=== PATIENT | female | born 1960 | race Caucasian/White ===

== ENCOUNTER → 2017-12-16 09:27 | Outpatient (CLI) | payer MEDICAID, SELFPAY ==
[2017-12-16 10:49] LABS: C-Reactive Protein 1.07 mg/dL (0.0-0.3); Creatine Kinase 65 U/L (26-192)
[2017-12-16 11:08] LABS: ESR 11 MM/HR (0-30)
== END ==
PROVIDERS: PCP Family Medicine; Visit Provider Internal Medicine Rheumatology
DX: M79.1 Myalgia (principal)
CPT/HCPCS: 36415; 82550; 85652; 82085; 86140

== ENCOUNTER 2019-05-13 11:41 | Outpatient (CLI) | payer MEDICAID, SELFPAY ==
[2019-05-13 12:57] LABS: Vitamin D 25 Total 48.2 ng/ml (30-100)
== END 2019-05-13 12:01 ==
PROVIDERS: PCP Family Medicine; Visit Provider Physical Medicine & Rehabilitation
DX: M89.9 Disorder of bone, unspecified (principal); E55.9 Vitamin D deficiency, unspecified
CPT/HCPCS: 36415; 82306

== ENCOUNTER 2019-07-13 11:38 | Outpatient (CLI) | payer MEDICAID, SELFPAY ==
[2019-07-13 12:24] LABS: Abs Immature Grans 0.01 k/cumm (0.0-0.09); Absolute Basophil Count 0.06 k/cumm (0.0-0.2); Absolute Eosinophil Count 0.08 k/cumm (0.0-0.7); Absolute Lymphocyte Count 2.26 k/cumm (1.2-3.4); Absolute Neutrophil Count 3.24 k/cumm (1.2-6.7); Eosinophils % 1.3; HCT 40.3 % (36.0-46.0); HGB 13.1 g/dL (12.0-15.5); Immature Grans % 0.2 %; Lymphocytes % 37.4; Mean Corp. HGB Concentration 32.5 g/dL (32.0-36.0); Mean Corpuscular Hemoglobin 30.5 pg (27.0-33.0); Mean Corpuscular Volume 93.7 fL (80-95); Mean Platelet Volume 8.8 fL (8.0-11.0); Monocytes % 6.6; Neutrophils % 53.5; Platelet Count 314 x1000/uL (130-400); RBC Distribution Width 13.2 % (11.7-14.6); White Blood Cell Count 6.05 k/cumm (4.4-10.8)
[2019-07-13 12:56] LABS: Iron 47 ug/dL (50-170); Total Iron Binding Capacity 260 ug/dL (250-450); Transferrin Sat 18 % (15-50)
[2019-07-13 13:23] LABS: Ferritin 299 ng/mL (8-252); Folate 14.6 ng/mL (8.6-20.0); TSH 1.29 uIU/mL (0.36-3.74); Vitamin B12 239 pg/mL (193-986)
== END 2019-07-13 11:58 ==
PROVIDERS: PCP Family Medicine; Visit Provider Physical Medicine & Rehabilitation
DX: M79.10 Myalgia, unspecified site (principal); R53.83 Other fatigue; G47.9 Sleep disorder, unspecified; E03.9 Hypothyroidism, unspecified
CPT/HCPCS: 36415; 82607; 82728; 82746; 83540; 83550; 84443; 85025

== ENCOUNTER 2019-09-21 13:38 | Outpatient (REF) | payer MEDICAID, SELFPAY ==
[2019-09-22 13:29] LABS: COVID-19 RT-PCR UVMMC Result Negative (Negative)
== END 2019-09-21 13:58 ==
LOC: NCHCN 13:38
PROVIDERS: PCP Family Medicine; Visit Provider Physician Assistant
DX: R50.9 Fever, unspecified (principal)
CPT/HCPCS: U0003

== ENCOUNTER 2020-07-03 03:02 | Outpatient (CLI) | payer MEDICAID, SELFPAY | END 2020-07-03 03:03 | disposition home or self-care (01) | LOC: LBO 03:03 | PROVIDERS: PCP Family Medicine; Visit Provider Physical Medicine & Rehabilitation | DX: E55.9 Vitamin D deficiency, unspecified (principal); M89.8X8 Other specified disorders of bone, other site | CPT/HCPCS: 36415; 82306 ==

== ENCOUNTER 2021-05-22 15:01 | Outpatient (REF) | payer MEDICAID, SELFPAY ==
[2021-05-22 19:30] LABS: ALT 24 U/L (14-59); AST 15 U/L (15-37); Alkaline Phosphatase 68 U/L (46-116); Anion Gap 9.2 mmol/L (3-11); BUN 12 mg/dL (7-18); Bilirubin, Total 0.2 mg/dL (0.2-1.0); CO2 27.8 mmol/L (21.0-32.0); CREATININE 0.6 mg/dL (0.55-1.02); Calcium 9.3 mg/dL (8.5-10.1); Calculated LDL 124 mg/dL (<100); Chloride 104 mmol/L (98-107); Cholesterol 221 mg/dL (<200); Glucose 83 mg/dL (74-106); HDL Cholesterol 79 mg/dL (40-60); Potassium 4.3 mmol/L (3.5-5.1); Sodium 141 mmol/L (136-145); Total Protein 6.7 g/dL (6.4-8.2); Triglyceride 92 mg/dL (<150)
== END 2021-05-22 15:02 | disposition home or self-care (01) ==
LOC: NCHCN 15:01
PROVIDERS: PCP Family Medicine; Visit Provider Physician Assistant Medical
DX: Z00.8 Encounter for other general examination (principal); Z13.220 Encounter for screening for lipoid disorders
CPT/HCPCS: 80053; 80061

== ENCOUNTER 2021-07-17 16:18 | Outpatient (CLI) | payer MEDICAID, SELFPAY ==
--- NOTE | 2021-07-17 | DI.CT_ITS ---
Exam(s) CT HEAD WO EXAM: CT HEAD WO CLINICAL HISTORY: HX HEAD INJURY Z87.820, INCREASING HEADACHE AND MEMORY ISSUES. TECHNIQUE: Imaging Protocol: Axial computed tomography images with coronal and sagittal reformatted images were created and reviewed COMPARISON: No exams were available for comparison FINDINGS: There are no skull fractures nor fluid in the visualized paranasal sinuses. There is no evidence of intracranial hemorrhage, mass effect, or shift of midline structures. There are no extra-axial fluid collections. The ventricles are not enlarged or shifted and there is no blo od within the ventricular system nor within the basal cisterns. IMPRESSION: No acute intracranial findings on this noninfused CT scan of the brain. RADIATION DOSE DELIVERED: 678.04mGy.cm Total DLP DATA REPOSITORY: All CT scans at this facility are submitted to the National Radiology Data Registry (NRDR) Dose Index Registry (DIR) with the [employer] ([employer]). RADIATION OPTIMIZATION: All CT scans at this facility use at least one of these dose optimization te chniques: automated exposure control; mA and/or kV adjustment per patient size (includes targeted exa ms where dose is matched to clinical indication); or iterative reconstruction.
== END 2021-07-17 16:38 ==
PROVIDERS: PCP Family Medicine; Visit Provider Nurse Practitioner Family
DX: R51.9 Headache, unspecified (principal); R41.3 Other amnesia; Z87.820 Personal history of traumatic brain injury
CPT/HCPCS: 70450

== ENCOUNTER 2021-08-01 00:31 | Outpatient (CLI) | payer MEDICAID, SELFPAY ==
--- NOTE | 2021-08-01 | DI.MRI_ITS ---
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 COMPARISON: CT CT HEAD WO from 07/17/2021 FINDINGS: CEREBRAL PARENCHYMA: There is no evidence of intracranial hemorrhage, mass effect, or shift of midline structures. There are no extra-axial fluid collections. Ventricles are not enlarged or shifted. There is no significant focal signal abnormality in the cerebellar hemispheres nor within the hardy, m idbrain, and thalami. There is no abnormal signal abnormality in the periventricular white matter. There is no significant focal signal abnormality evident on diffusion imaging to suggest acute ischem ic event. No evidence of microhemorrhages on susceptibility weighted imaging Amount of involutional change appears consistent with this patient's age. PITUITARY GLAND: No mass nor parasellar abnormality. No obvious abnormality in the cavernous sinuses. FLOW VOIDS: The expected flow void are noted. No evidence of obvious aneurysm nor obvious vascular ma lformation. PARANASAL SINUSES: The visualized paranasal sinuses appear unremarkable. No obvious finding ORBITS: No obvious findings. IMPRESSION: No significant intracranial findings on this noninfused MRI scan of the brain. DATA REPOSITORY:
== END 2021-08-01 00:51 ==
PROVIDERS: PCP Family Medicine; Visit Provider Nurse Practitioner Family
DX: G31.84 Mild cognitive impairment of uncertain or unknown etiology (principal); Z87.820 Personal history of traumatic brain injury
CPT/HCPCS: 70551

== ENCOUNTER 2021-11-13 18:18 | Outpatient (REF) | payer MEDICAID, SELFPAY | END 2021-11-13 18:19 | disposition home or self-care (01) | LOC: LBN 18:18 | PROVIDERS: PCP Family Medicine; Visit Provider Nurse Practitioner Family | DX: L08.89 Other specified local infections of the skin and subcutaneous tissue (principal) | CPT/HCPCS: 87077; 87070; 87186; 87205 ==

== ENCOUNTER 2023-01-22 18:40 | Outpatient (REF) | payer MEDICAID, SELFPAY ==
[2023-01-22 20:55] LABS: Abs Immature Grans 0.03 10^3/uL (0.0-0.06); Absolute Eosinophil Count 0.08 10^3/uL (0.0-0.7); Absolute Lymphocyte Count 2.33 10^3/uL (1.2-3.4); Absolute Monocyte Count 0.53 10^3/uL (0.1-0.8); Absolute Neutrophil Count 3.78 10^3/uL (1.2-6.7); Basophils % 1.5; Eosinophils % 1.2; HCT 41.1 % (36.0-46.0); HGB 13.7 g/dL (11.2-15.7); Immature Grans % 0.4; MCH 32.3 pg (27.0-33.0); MCHC 33.3 % (32.0-36.0); MCV 97 fL (80-95); MPV 9.5 fL (8.0-11.0); Monocytes % 7.7; Neutrophils % 55.2; Platelet Count 299 10^3/uL (130-400); RBC 4.24 10^6/uL (3.93-5.22); RDW-SD 46.1 fL; WBC 6.85 10^3/uL (4.4-10.8)
[2023-01-22 21:22] LABS: ALT 22 U/L (14-59); AST 23 U/L (15-37); Albumin 3.9 g/dL (3.4-5.0); Alkaline Phosphatase 70 U/L (46-116); Anion Gap 6.7 mmol/L (3-11); BUN 17 mg/dL (7-18); Bilirubin, Total 0.4 mg/dL (0.2-1.0); CO2 29.3 mmol/L (21.0-32.0); CREATININE 0.8 mg/dL (0.55-1.02); Calcium 9.3 mg/dL (8.5-10.1); Chloride 105 mmol/L (98-107); Estimated GFR 82.23 (mL/min/1.73m2); Glucose 90 mg/dL (74-106); Potassium 4.1 mmol/L (3.5-5.1); Sodium 141 mmol/L (136-145); Total Protein 7.1 g/dL (6.4-8.2)
== END 2023-01-22 18:41 | disposition home or self-care (01) ==
LOC: NCHCN 18:40
PROVIDERS: PCP Family Medicine; Visit Provider Physician Assistant Medical
DX: E03.9 Hypothyroidism, unspecified (principal); R53.83 Other fatigue; Z13.228 Encounter for screening for other metabolic disorders
CPT/HCPCS: 80053; 85025

== ENCOUNTER 2025-01-31 10:45 | Outpatient (CLI) | payer MEDICARE, BC, SELFPAY ==
[2025-01-31 10:32] LABS: HCT 41.1 % (36.0-46.0); HGB 13.6 g/dL (11.2-15.7); MCH 30.9 pg (27.0-33.0); MCHC 33.1 % (32.0-36.0); MCV 93 fL (80-95); MPV 8.2 fL (8.0-11.0); Platelet Count 313 10^3/uL (130-400); RBC 4.40 10^6/uL (3.93-5.22); RDW 12.8 % (11.7-14.6); RDW-SD 44.2 fL; WBC 8.77 10^3/uL (4.4-10.8)
[2025-01-31 11:28] LABS: ALT 25 U/L (14-59); AST 21 U/L (15-37); Albumin 4.0 g/dL (3.4-5.0); Alkaline Phosphatase 82 U/L (46-116); Anion Gap 8.0 mmol/L (3-11); BUN 15 mg/dL (7-18); Bilirubin, Total 0.9 mg/dL (0.2-1.0); CO2 29.0 mmol/L (21.0-32.0); Calcium 10.0 mg/dL (8.5-10.1); Chloride 100 mmol/L (98-107); Estimated GFR 95.32 (mL/min/1.73m2); Glucose 85 mg/dL (74-106); Potassium 4.4 mmol/L (3.5-5.1); Sodium 137 mmol/L (136-145); Total Protein 7.4 g/dL (6.4-8.2)
[2025-02-01 15:24] LABS: Calculated LDL 130 mg/dL (<100); Cholesterol 221 mg/dL (<200); HDL Cholesterol 78 mg/dL (>or=50); Triglyceride 68 mg/dL (<150); Vitamin D 25 Total 54 ng/mL (30-100)
== END 2025-01-31 10:46 | disposition home or self-care (01) ==
LOC: LBO 10:47
PROVIDERS: PCP Family Medicine; Visit Provider Physician Assistant Medical
DX: Z13.220 Encounter for screening for lipoid disorders (principal); Z00.00 Encounter for general adult medical examination without abnormal findings; F41.9 Anxiety disorder, unspecified
CPT/HCPCS: 36415; 80053; 80061; 82306; 85027